=== PATIENT | female | born 1955 | race Caucasian/White ===

== ENCOUNTER → 2017-04-05 | Outpatient (CLI) | payer BC ==
[2017-04-05 10:48] LABS: ALT 32 U/L (9-52); AST 20 U/L (14-36); Albumin 3.8 g/dL (3.5-5.0); Alkaline Phosphatase 80 U/L (38-126); Anion Gap 9 mmol/L; Blood Urea Nitrogen 17 mg/dL (7-17); Calcium 9.5 mg/dL (8.4-10.2); Carbon Dioxide 30 mmol/L (22-30); Chloride 103 mmol/L (98-107); Cholesterol 151 mg/dL (<200); Glucose 121 mg/dL (74-99); HDL Cholesterol 53 mg/dL (40-60); LDL Cholesterol,Calculated 70 mg/dL (0-99); Potassium 4.3 mmol/L (3.5-5.1); Sodium 142 mmol/L (137-145); Total Bilirubin 0.9 mg/dL (0.2-1.3); Total Protein 6.3 g/dL (6.3-8.2); Triglycerides 140 mg/dL (<150)
[2017-04-05 19:47] LABS: Hemoglobin A1C 6.2 % (4.0-6.0)
== END | disposition home or self-care (01) ==
LOC: LABWHC1 09:40
PROVIDERS: ATTEND Family Medicine
DX: E11.9 Type 2 diabetes mellitus without complications (principal); E78.5 Hyperlipidemia, unspecified
CPT/HCPCS: 36415; 80053; 80061; 83036

== ENCOUNTER → 2017-10-14 | Outpatient (CLI) | payer BC ==
[2017-10-14 09:32] LABS: ALT 36 U/L (9-52); AST 21 U/L (14-36); Alkaline Phosphatase 76 U/L (38-126); Anion Gap 7 mmol/L; Blood Urea Nitrogen 20 mg/dL (7-17); Calcium 9.3 mg/dL (8.4-10.2); Carbon Dioxide 31 mmol/L (22-30); Chloride 103 mmol/L (98-107); Cholesterol 179 mg/dL (<200); Glucose 127 mg/dL (74-99); HDL Cholesterol 57 mg/dL (40-60); LDL Cholesterol,Calculated 68 mg/dL (0-99); Potassium 4.6 mmol/L (3.5-5.1); Sodium 141 mmol/L (137-145); Total Bilirubin 0.9 mg/dL (0.2-1.3); Total Protein 6.8 g/dL (6.3-8.2); Triglycerides 268 mg/dL (<150)
[2017-10-14 09:48] LABS: T4, Free (Free Thyroxine) 0.84 ng/dL (0.78-2.19)
== END | disposition home or self-care (01) ==
LOC: LABWHC1 09:02
PROVIDERS: ATTEND Family Medicine
DX: E11.9 Type 2 diabetes mellitus without complications (principal); E78.5 Hyperlipidemia, unspecified
CPT/HCPCS: 36415; 80053; 80061; 83036; 84439; 84443

== ENCOUNTER → 2018-06-16 | Outpatient (CLI) | payer BC ==
--- NOTE | 2018-06-16 18:31 | CONS ---
CONSULTATION DATE OF SERVICE: 06/16/2018 63-year-old lady has been evaluated in the [facility] for evaluation and treatment of obstructive sleep apnea-hypopnea syndrome. HISTORY OF PRESENT ILLNESS SLEEP WAKE EVALUATION: Patient has been diagnosed with obstructive sleep apnea about 10 years ago. She is on treatment with CPAP every night for the whole night since that time. The last time she changed her CPAP unit more than 5 years ago. Since that time, she has significantly changed her weight about 60 pounds down. Presently, her sleep schedule from 10:30 p.m. to 7 a.m. She usually does not have any problem with falling asleep. No TV in bedroom. She usually sleeps on the side position. While she is using machine, according to her , she occasionally snores. She wakes up from sleep up to 2 times with nocturia. No history of hypnagogical hallucinations, sleep paralysis or cataplexy. [place] Sleepiness Scale increased to 11. Patient had home sleep apnea test in another institution in October of 2017, which showed severe sleep apnea with apnea-hypopnea index 32.4, and oxygen desaturation to 79%. PAST MEDICAL HISTORY: Positive for hypertension. The patient is on treatment with 3 medications now. Blood pressure is still not under full control. Venous insufficiency with swelling of the legs. Diabetes mellitus, anxiety, hyperlipidemia. PAST SURGICAL HISTORY: Surgery for multiple hernia repair, , tonsillectomy, surgery for nasal septum deviation. MEDICATIONS: Lipitor, triamcinolone, acetonide ointment for the legs, Effexor, with hydrochlorothiazide, metoprolol, Ramipril, aspirin, metformin. SOCIAL HISTORY: Negative for smoking. Alcohol consumption 3 glasses of wine a day. FAMILY HISTORY: Hypertension, heart problems, hyperlipidemia, stroke, arthritis. REVIEW OF SYSTEMS: Awakenings from sleep while on treatment with CPAP. Symptoms of excessive daytime sleepiness wile on treatment with CPAP. Swelling of the legs increasing while changing of the weight. PHYSICAL EXAM: GENERAL: lady without distress. VITAL SIGNS: BP 157/104, HR 80, RR 20, height 5 feet 6 inches, weight 327, body mass index 52.7, temperature 97.7, oxygen saturation at room air 96%. HEENT: Oropharynx showed extremely low position of soft palate. Mallampati 4. Wide neck 17-1/2 inches in circumference. Neck Supple, no JVD. Thyroid is not palpable. LUNGS Clear to percussion and to auscultation. Good air exchange. No wheezing or rhonchi. HEART S1, S2 regular. No murmurs, gallops, or rubs. ABDOMEN: Obese. Soft and nontender. Bowel sounds are present. No organomegaly appreciated. EXTREMITIES: 2+ bilateral ankle edema. ELECTROLYSIS INVESTIGATOR Awake, alert, and oriented X3. Cranial nerves 2 to 7 intact. There is no fasciculation or atrophy. noted. No focal deficits observed. IMPRESSION: 1. Obstructive sleep apnea-hypopnea syndrome for 10 years. The last home sleep study in October of 2017 showed severe obstructive sleep apnea-hypopnea syndrome with apnea-hypopnea index 32.4 and oxygen desaturation to 79%. Extremely low position of soft palate, wide neck. The patient continued to use her CPAP equipment every night but wake up while using CPAP and snore while on CPAP and has excessive daytime sleepiness. [place] Sleepiness Scale is 11. 2. Obesity, body mass index 52.7, significant changing of weight about 60 pounds for the last 5 years down. 3. Hypertension, not on good control with 3 medications. 4. Diabetes mellitus. 5. Swelling of the legs. 6. History of venous insufficiency, possible congestive heart failure. 7. Diabetes mellitus. 8. Hyperlipidemia. 9. History of anxiety. 10.History of depression. 11.Status post multiple hernia repairs. 12.Status post . 13.Status post tonsillectomy. 14.Status post nasal surgery for nasal septum deviation. PLAN: 1. CPAP titration if necessary BiPAP titration for correction of patient respiratory abnormalities. 2. Aggressive losing weight program. 3. Sleep hygiene with regular time in bed for at least 7.5 to 8 hours. 4. No driving if feeling sleepiness. 5. We will get for patient new CPAP if necessary BiPAP unit after titration. Prescriptions for all necessary CPAP supplies. Thank you very much for referring this patient for consultation. Sincerely, Robert Man MD, PhD, FAASM Diplomat of [place] [employer] [place] [employer] [facility] Attendant of [facility] [place] MMODL / IJN: [id number] /
== END | disposition home or self-care (01) ==
LOC: SLEEP 10:51
PROVIDERS: ATTEND Internal Medicine
DX: G47.33 Obstructive sleep apnea (adult) (pediatric) (principal); R35.1 Nocturia; I10 Essential (primary) hypertension; E66.9 Obesity, unspecified; E11.9 Type 2 diabetes mellitus without complications; I87.2 Venous insufficiency (chronic) (peripheral); E78.5 Hyperlipidemia, unspecified; F41.9 Anxiety disorder, unspecified; F32.9 Major depressive disorder, single episode, unspecified; Z90.89 Acquired absence of other organs; Z99.89 Dependence on other enabling machines and devices; Z98.890 Other specified postprocedural states; Z79.52 Long term (current) use of systemic steroids; Z68.43 Body mass index [BMI] 50.0-59.9, adult; Z87.09 Personal history of other diseases of the respiratory system; Z79.82 Long term (current) use of aspirin; Z79.84 Long term (current) use of oral hypoglycemic drugs; Z79.899 Other long term (current) drug therapy
CPT/HCPCS: 99211

== ENCOUNTER 2018-07-19 06:52 | Day surgery (SDC) | payer BC ==
[~2018-07-19 06:52] MED LIST: LACTATED RINGERS 1,000 ML IV SCH
[2018-07-19 07:17] VITALS: RESP 18; TEMP 98
[2018-07-19 07:31] LABS: Glucose,Whole Blood 141 mg/dL (75-99)
[2018-07-19] MEDS ORDERED: LIDOCAINE 1% INJ 10MG/ML (20 ML MDV) ONE (07:43)
[2018-07-19] MEDS ORDERED: PROPOFOL 10 MG/ML 20 ML VIAL IV ONE (07:43)
--- NOTE | 2018-07-19 07:47 | P.GSHP ---
History of Present Illness H&P Date: 07/19/18 Chief Complaint: History of colon polyps This is a 63-year-old female who presents today for colonoscopy. Patient appears history of polyps. Past Medical History Past Medical History: Diabetes Mellitus, Hyperlipidemia, Hypertension, O steoarthritis (OA), Pulmonary Embolus (PE) Additional Past Medical History / Comment(s): OCCASIONAL STEROID INJECTIONS IN BOTH KNEES FROM DR. VINSON. History of Any Multi-Drug Resistant Organisms: None Reported Past Surgical History: Bariatric Surgery, Section, Cholecystectomy, Hernia Repair Additional Past Surgical History / Comment(s): eye surgery ([facility]). SINUS Past Anesthesia/Blood Transfusion Reactions: No Reported Reaction Past Psychological History: Anxiety, Depression Smoking Status: Smoker, current status unknown Past Alcohol Use History: Occasional Past Drug Use History: None Reported - Past Family History Mother Family Medical History: Unable to Obtain Medications and Allergies Home Medications Medication Instructions Recorded Confirmed Type Aspirin 81 mg PO DAILY 12/20/14 07/19/18 History Atorvastatin [Lipitor] 20 mg PO HS 12/20/14 07/19/18 History Metoprolol Succinate [Toprol XL] 100 mg PO HS 12/20/14 07/19/18 History Ramipril 20 mg PO HS 12/20/14 07/19/18 History Triamterene-Hctz 37.5-25Mg 1 cap PO HS 12/20/14 07/19/18 History [Dyazide 37.5-25 Capsule] Venlafaxine HCl ER [Effexor Xr] 150 mg PO HS 12/20/14 07/19/18 History metFORMIN HCL [Glucophage Xr] 500 mg PO BID 12/20/14 07/19/18 History Acetaminophen [Tylenol] 325 - 650 mg PO Q6H PRN 07/15/18 07/19/18 History Allergies Allergy/AdvReac Type Severity Reaction Status Date / Time bacitracin AdvReac Rash/Hives Verified 07/15/18 10:26 [From Neosporin ([id number])] neomycin AdvReac Rash/Hives Verified 07/15/18 10:26 [From Neosporin ([id number])] polymyxin B AdvReac Rash/Hives Verified 07/15/18 10:26 [From Neosporin ([id number])] Surgical - Exam Vital Signs Temp Pulse Resp BP Pulse Ox 98.0 F 79 18 168/96 93 L 07/19/18 07:12 07/19/18 07:12 07/19/18 07:12 07/19/18 07:12 07/19/18 07:12 - General well developed, well nourished, no distress - Eyes PERRL - ENT normal pinna - Neck no masses - Respiratory normal expansion - Cardiovascular Rhythm: regular - Abdomen Abdomen: soft, non tender Results - Labs Abnormal Lab Results - Last 24 Hours (Table) 07/19/18 Range/Units 07:26 POC Glucose (mg/dL) 141 H (75-99) mg/dL Assessment and Plan Assessment: History of colon polyps. We'll perform colonoscopy.
[2018-07-19 08:30] VITALS: BP 127/76; PULSE 68
--- NOTE | 2018-07-25 14:34 | P.OP ---
Date of Procedure: 07/19/18 Preoperative Diagnosis: History of colon polyps Postoperative Diagnosis: Rectal polyp Procedure(s) Performed: Colonoscopy Anesthesia: MAC Surgeon: Gibson Rushing Pathology: other (Rectal polyp) Condition: stable Disposition: PACU Description of Procedure: The patient's placed on the endoscopy table in the lateral position. She received IV sedation. Digital rectal exam was performed which revealed no abnormalities. The flexible colonoscope was then placed patient anus passed throughout the entire colon. The ileocecal valve was visualized. The cecum, ascending and transverse colon appeared normal. The descending and; appeared normal. Scope was then brought back the rectum a small polyp seen this removed with the cold forcep. Scope was withdrawn for patient.
== END 2018-07-19 08:39 | disposition home or self-care (01) ==
LOC: ORWHC2ENDO 06:52
PROVIDERS: ATTEND Surgery
DX: Z12.11 Encounter for screening for malignant neoplasm of colon (principal); K62.1 Rectal polyp; I10 Essential (primary) hypertension; E78.5 Hyperlipidemia, unspecified; E11.9 Type 2 diabetes mellitus without complications; F41.9 Anxiety disorder, unspecified; G47.33 Obstructive sleep apnea (adult) (pediatric); F32.9 Major depressive disorder, single episode, unspecified; F17.200 Nicotine dependence, unspecified, uncomplicated; M19.90 Unspecified osteoarthritis, unspecified site; Z79.82 Long term (current) use of aspirin; Z79.899 Other long term (current) drug therapy; Z86.010 Personal history of colon polyps; Z86.711 Personal history of pulmonary embolism; Z79.84 Long term (current) use of oral hypoglycemic drugs; Z88.1 Allergy status to other antibiotic agents; Z98.84 Bariatric surgery status
CPT/HCPCS: 88305; 45380; J2001; J2704

== ENCOUNTER → 2018-08-01 | Outpatient (CLI) | payer BC ==
--- NOTE | 2018-08-01 23:13 | HP ---
HISTORY AND PHYSICAL DATE OF SERVICE: 08/01/2018 CHIEF COMPLAINTS: Some shortness of breath and as well as pain while taking deep breath on the right side of the chest. HISTORY OF PRESENT ILLNESS: This 64-year-old woman with a past medical history of multiple medical problems including history of possible cardiac takotsubo cardiomyopathy, history of right breast cancer with mastectomy and chemotherapy, history of breast surgery, history of cardiac catheterization, being followed by Dr. Davidson in the outpatient setting was admitted in February of this year with some chest pain. The troponin elevated at 7.3. At that time, cardiac cath showed normal ejection fraction 20%. The patient subsequently underwent AICD placement by Dr. Kraft in June and the patient went home. Currently the patient is complaining of pain and swelling of the right side of the chest for the last few days, which is increasing in intensity. Patient also complaining of some minimal shortness of breath and some hemoptysis also. D-dimer was elevated in the ER but spiral CT scan showed did not show any acute pulmonary embolism, but however, multiple consolidative type of lesions was seen mainly in the right chest. Patient admitted for further evaluation and treatment. Patient also complaining of joint pains and aches also the possibly sarcoid has also been raised. There is no history of any fever, rigors or chills. Occasions sweating reported by patient, but that is being given before the onset of all the present illnesses. PAST MEDICAL HISTORY: Of takotsubo cardiomyopathy, history of AICD, history of mitral regurgitation, history of left bundle branch block, history of breast cancer. History of hypertension, history of hyperlipidemia. MEDICATIONS ARE: 1. Aldactone 25 mg p.o. daily. 2. Zocor 20 mg q.h.s. 3. Nitrostat 0.4 mg p.r.n. 4. Multivitamins 1 p.o. daily. 5. Cozaar 12.5 mg p.o. daily. 6. Lasix 20 mg. 7. Coreg 9.375 mg p.o. b.i.d. 8. Calcium 1200 mg p.o. b.i.d. 9. Aspirin 81 mg p.o. 10.Fosamax 70 mg p.o. Wednesday. ALLERGIES: None. FAMILY HISTORY: No history of heart disease or strokes in the family. SOCIAL HISTORY: History of smoking. No alcohol intake. REVIEW OF SYSTEMS: ENT: No diminished. No diminished vision. CARDIOVASCULAR as mentioned earlier. RESPIRATORY: As mentioned earlier. GI no nausea or vomiting. : No dysuria. NERVOUS SYSTEM: No numbness or weakness. ALLERGY/IMMUNOLOGY: No history of asthma or hayfever. MUSCULOSKELETAL as mentioned earlier. HEMATOLOGY/ONCOLOGY: No history of anemia. ENDOCRINE: No history of diabetes, hypothyroid. CONSTITUTIONAL: As mentioned earlier. DERMATOLOGY: Negative. RHEUMATOLOGY: Negative. PSYCHIATRY as mentioned. PHYSICAL EXAMINATION: Alert and oriented x3. Pulse is 70. Blood pressure 99/70, respiration 18, temperature 97.2, pulse ox 98% on room air. HEENT: Conjunctivae normal. Oral mucosa moist. NECK is no jugular venous distention. No carotid bruit. No lymph node enlargement. Cardiovascular system: S1, S2. No S3, no S4. RESPIRATORY: Breath sounds diminished in the bases. A few scattered rhonchi. No crackles. ABDOMEN: Soft, nontender. No mass palpable. LEGS: No edema. No swelling. NERVOUS SYSTEM: Higher functions as mentioned earlier, moves all 4 limbs. No focal motor or sensory deficits. Lymphatics: No lymph nodes palpable in the neck, axillae or groin. SKIN: No ulcer, rash or bleeding. JOINTS: No active deforming arthropathy. LABS: At this time shows WBC 9.2, hemoglobin 7.6. C-reactive protein 66.6 and UA noted some hematuria. ASSESSMENT: 1. Multiple bilateral consolidative lesions, rule out multifocal pneumonia. 2. Rule out infective endocarditis with cavitating lesions. 3. Hematuria for evaluation, rule out urinary tract infection. 4. Elevated CRP. 5. Elevated D-dimer with no evidence of pulmonary embolus. 6. History of takotsubo cardiomyopathy. 7. Status post AICD placement. 8. History of breast cancer. 9. History of moderate mitral regurgitation. 10.History left bundle branch block. 11.History of hyperlipidemia. RECOMMENDATIONS AND DISCUSSION: This 63-year-old woman who presented with multiple complex medical issues, we will monitor the patient closely, continue the current medications, management and symptomatic treatment. We will obtain blood cultures. A 2D echo with Doppler. Cardiology consultation. Infectious disease evaluation. Otherwise I would also recommend Pulmonary consultations. Resume the home medications. DVT prophylaxis. Guarded prognosis because of multiple complex medical issues. Further recommendations to follow. A copy of dictation being forwarded to Dr. Davidson who is the primary physician. MMODL / IJN: [id number] /
--- NOTE | 2018-08-02 10:57 | MM ---
Reason for exam: screening (asymptomatic). Last mammogram was performed 2 years and 8 months ago. History: Patient is postmenopausal and had first child at age 30. Physical Findings: A clinical breast exam by your physician is recommended on an annual basis and results should be correlated with mammographic findings. MG 3D Screening Mammo W/Cad Bilateral CC and MLO view(s) were taken. Prior study comparison: December 13, 2015, left breast MG work up mamm w CAD LT. November 18, 2015, bilateral MG screening mammo w CAD. The breast tissue is almost entirely fat. No significant changes when compared with prior studies. ASSESSMENT: Benign, BI-RAD 2 RECOMMENDATION: Routine screening mammogram of both breasts in 1 year.
== END | disposition home or self-care (01) ==
LOC: RADMAMWWP 14:19
PROVIDERS: ATTEND Family Medicine
DX: Z12.31 Encounter for screening mammogram for malignant neoplasm of breast (principal)
CPT/HCPCS: 77063; 77067

== ENCOUNTER → 2018-10-13 | Outpatient (CLI) | payer BC ==
--- NOTE | 2018-10-13 14:44 | PN ---
PROGRESS NOTE DATE OF SERVICE: 10/13/2018 A 63-year-old lady who has been followed in the Sleep Center for treatment of obstructive sleep apnea-hypopnea syndrome. Recently patient had CPAP titration which was very successful, respiration patient normalized and then she received new CPAP unit. Today is her first visit after she received unit. Patient is able to use her CPAP equipment every night for the whole night without significant problems related to mask fitting, pressure or humidification. [place] Sleepiness Scale today is 6, which is in normal range. I checked her CPAP unit. CPAP pressure is 11 cm of water. Usage is 100% of nights, more than 4 hours with average usage 8.7 hours per night. Leak is slightly increased 34 L/minute. Apnea-hypopnea index is totally normal 1.3. The patient opens her mouth, she is using a nasal pillow mask. MEDICATIONS: Lipitor, triamcinolone, Effexor, triamterene, hydrochlorothiazide, metoprolol, ramipril, metformin. PHYSICAL EXAM: Patient in no distress. BP 162/82, HR 84, RR 16, weight 332 pounds, temperature 97.5, oxygen saturation at room air 95%. OROPHARYNX: Extremely low position of soft palate, Mallampati 4. ABDOMEN: Obese. Neck Supple, no JVD. Thyroid is not palpable. LUNGS Clear to percussion and to auscultation. Good air exchange. No wheezing or rhonchi. HEART S1, S2 regular. No murmurs, gallops, or rubs. EXTREMITIES No clubbing or cyanosis. INDEPENDENT LIVING INSTRUCTOR Awake, alert, and oriented X3. Cranial nerves 2 to 7 intact. There is no fasciculation or atrophy. noted. No focal deficits observed. IMPRESSION: 1. Severe obstructive sleep apnea-hypopnea syndrome, apnea-hypopnea index 32. On full control with CPAP at 11 cm of water. patient demonstrated 100% compliance with treatment, benefitting from treatment. 2. Severe periodic limb movements have been documented during titration, but clinically there is no problem with leg movements. 3. Obesity. 4. Hypertension. 5. Diabetes mellitus. 6. History of swelling of the legs. 7. History of venous insufficiency. 8. Diabetes mellitus. 9. Hyperlipidemia. 10.History of depression and anxiety. 11.Status post multiple hernia repair. 12.Status post . 13.Status post tonsillectomy. 14.Status post nasal surgery for nasal septum deviation. PLAN: 1. Patient will continue to use CPAP equipment every night for the whole night. 2. Prescription for chin strap. 3. Losing weight. 4. Sleep hygiene with regular time in bed for 7-1/2 hours. 5. No driving if feeling any sleepiness. 6. Will maintain all necessary prescription for CPAP supplies including nasal pillow, mask, tube, filters and chin strap. Patient is using heated tube. Thank you very much for allowing me to participate in the management of your patient. Sincerely, Robert Man MD, PhD, FAASM Diplomat of [place] [employer] Technician of [facility] [place] MMODL / IJN: [id number] /
== END ==
LOC: SLEEP 13:21
PROVIDERS: ATTEND Internal Medicine
DX: G47.33 Obstructive sleep apnea (adult) (pediatric) (principal); G47.61 Periodic limb movement disorder; E66.9 Obesity, unspecified; I10 Essential (primary) hypertension; E11.9 Type 2 diabetes mellitus without complications; I87.2 Venous insufficiency (chronic) (peripheral); E78.5 Hyperlipidemia, unspecified; F41.8 Other specified anxiety disorders; Z98.890 Other specified postprocedural states; Z90.89 Acquired absence of other organs; Z99.89 Dependence on other enabling machines and devices; Z87.39 Personal history of other diseases of the musculoskeletal system and connective tissue; Z79.899 Other long term (current) drug therapy; Z79.84 Long term (current) use of oral hypoglycemic drugs

== ENCOUNTER 2019-12-07 07:00 | Day surgery (SDC) | payer BC ==
[2019-12-05 13:39] VITALS: BMI 54.1
[2019-12-07] MEDS ORDERED: LIDOCAINE 1% (10MG/ML) FOR IV START INTRADERMA ONE (07:26)
[2019-12-07 07:38] LABS: Glucose,Whole Blood 151 mg/dL (75-99)
[2019-12-07 07:39] VITALS: TEMP 97.9
[2019-12-07] MEDS ORDERED: PROPOFOL 10 MG/ML 20 ML VIAL IV ONE (08:21)
--- NOTE | 2019-12-07 08:25 | P.GSHP ---
History of Present Illness H&P Date: 12/07/19 Chief Complaint: Screening colonoscopy This a 64-year-old female who presents today for screening colonoscopy. Patient denies a significant GI plaints.. Past Medical History Past Medical History: Diabetes Mellitus, Hyperlipidemia, Hypertension, Osteoarthritis (OA), Sleep Apnea/CPAP/BIPAP Additional Past Medical History / Comment(s): "cardiac event in 2002", diarrhea frquently, stress incontinence History of Any Multi-Drug Resistant Organisms: None Reported Past Surgical History: Bariatric Surgery, Section, Cholecystectomy, Heart Catheterization, Hernia Repair, Tonsillectomy Additional Past Surgical History / Comment(s): eye surgery (age 1). mult abdominal hernia repairs, gastric sleeve, deviated septum surgery, D&C, surgery for glaucoma Past Anesthesia/Blood Transfusion Reactions: Previous Problems w/ Anesthesia Additional Past Anesthesia/Blood Transfusion Reaction / Comment(s): felt like hangover for 24 hrs after D&C Smoking Status: Former smoker - Past Family History Mother Family Medical History: Cancer Additional Family Medical History / Comment(s): colon Medications and Allergies Home Medications Medication Instructions Recorded Confirmed Type Aspirin 81 mg PO DAILY 12/20/14 12/07/19 History Atorvastatin [Lipitor] 20 mg PO HS 12/20/14 12/07/19 History Metoprolol Succinate [Toprol XL] 100 mg PO HS 12/20/14 12/07/19 History Ramipril 20 mg PO HS 12/20/14 12/07/19 History Triamterene-Hctz 37.5-25Mg 1 cap PO HS 12/20/14 12/07/19 History [Dyazide 37.5-25 Capsule] Venlafaxine HCl ER [Effexor Xr] 150 mg PO HS 12/20/14 12/07/19 History metFORMIN HCL [Glucophage Xr] 500 mg PO BID 12/20/14 12/07/19 History Acetaminophen [Tylenol Extra 1,000 mg PO BID 12/05/19 12/07/19 History Strength] Biotin(Dose Unknown) 1 tab PO DAILY 12/05/19 12/07/19 History Triamcinolone Ointment 1 applicate TOPICAL DIRECTED PRN 12/05/19 12/07/19 History Vitamin D(Dose Unknown) 1 tab PO DAILY 12/05/19 12/07/19 History Allergies Allergy/AdvReac Type Severity Reaction Status Date / Time bacitracin AdvReac Rash/Hives Verified 12/05/19 13:25 [From Neosporin ([id number])] neomycin AdvReac Rash/Hives Verified 12/05/19 13:25 [From Neosporin ([id number])] polymyxin B AdvReac Rash/Hives Verified 12/05/19 13:25 [From Neosporin ([id number])] Surgical - Exam Vital Signs Temp Pulse Resp BP Pulse Ox 97.9 F 87 18 166/92 96 12/07/19 07:37 12/07/19 07:37 12/07/19 07:37 12/07/19 07:37 12/07/19 07:37 - General well developed, well nourished, no distress - Eyes PERRL - ENT normal pinna - Neck no masses - Respiratory normal expansion - Cardiovascular Rhythm: regular - Abdomen Abdomen: soft, non tender Results - Labs Abnormal Lab Results - Last 24 Hours (Table) 12/07/19 Range/Units 07:36 POC Glucose (mg/dL) 151 H (75-99) mg/dL Assessment and Plan Assessment: We'll perform screening colonoscopy.
--- NOTE | 2019-12-07 08:41 | P.OP ---
Date of Procedure: 12/07/19 Preoperative Diagnosis: Screening colonoscopy Postoperative Diagnosis: Rectal polyp Diverticulosis Procedure(s) Performed: Colonoscopy Anesthesia: MAC Surgeon: Gibson Rushing Pathology: other (Rectal polyp) Condition: stable Disposition: PACU Description of Procedure: The patient's placed on the endoscopy table in the lateral position. He received IV sedation. Digital rectal exam performed which revealed no rebound. The flexible colonoscope was then placed patient anus passed throughout the entire colon. The ileocecal valve sutures. The cecum, ascending and transverse colon appeared normal. In the descending; was moderate diverticular changes. Scope was then brought back the rectum and a small sessile polyp was seen this removed with a cold forcep. Scope was withdrawn for patient.
[2019-12-07 08:48] VITALS: RESP 16
[2019-12-07 09:18] VITALS: BP 151/90; PULSE 70
== END 2019-12-07 09:36 | disposition home or self-care (01) ==
LOC: ORWHC2ENDO 07:00
PROVIDERS: ATTEND Surgery
DX: Z12.11 Encounter for screening for malignant neoplasm of colon (principal); D12.8 Benign neoplasm of rectum; K57.30 Diverticulosis of large intestine without perforation or abscess without bleeding; E11.9 Type 2 diabetes mellitus without complications; E78.5 Hyperlipidemia, unspecified; I10 Essential (primary) hypertension; M19.90 Unspecified osteoarthritis, unspecified site; G47.30 Sleep apnea, unspecified; Z99.89 Dependence on other enabling machines and devices; N39.3 Stress incontinence (female) (male); Z90.49 Acquired absence of other specified parts of digestive tract; Z98.890 Other specified postprocedural states; Z98.84 Bariatric surgery status; Z87.891 Personal history of nicotine dependence; Z80.0 Family history of malignant neoplasm of digestive organs; Z79.899 Other long term (current) drug therapy; Z79.82 Long term (current) use of aspirin; Z88.8 Allergy status to other drugs, medicaments and biological substances
CPT/HCPCS: 88305; 45380; J2704

== ENCOUNTER 2020-03-26 19:47 | Emergency (ER) | payer BC, OTHER ==
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
== END 2020-03-27 00:02 | disposition expired ==
LOC: EC 19:47
DX: I46.9 Cardiac arrest, cause unspecified (principal); I10 Essential (primary) hypertension; E78.5 Hyperlipidemia, unspecified; M19.90 Unspecified osteoarthritis, unspecified site; E11.9 Type 2 diabetes mellitus without complications; G47.30 Sleep apnea, unspecified; Z79.899 Other long term (current) drug therapy; Z79.82 Long term (current) use of aspirin; Z79.84 Long term (current) use of oral hypoglycemic drugs; Z88.1 Allergy status to other antibiotic agents; Z87.891 Personal history of nicotine dependence; Z99.89 Dependence on other enabling machines and devices
CPT/HCPCS: 31500; 99291